=== PATIENT | female | born 1985 | race Caucasian/White ===

== ENCOUNTER 2018-05-27 20:23 | Inpatient (IN) | payer MEDICAID, OTHER ==
[~2018-05-27] VITALS: Ht 167.6 cm; Wt 74.2 kg
[2018-05-27 22:48] LABS: BASOPHILS % (AUTO) 0.4 % (0.0-2.0); EOSINOPHILS % (AUTO) 0.7 % (1.0-6.0); HEMATOCRIT 36.5 % (36-46); MEAN CORPUSCULAR HEMOGLOBIN 24.7 pg (26.0-34.0); MEAN CORPUSCULAR VOLUME 75 fL (80-100); MONOCYTES # (AUTO) 0.5 K/uL (0.1-1.0); MONOCYTES % (AUTO) 8.3 % (2.0-9.0); NEUTROPHILS # (AUTO) 3.5 K/uL (1.8-7.7); NEUTROPHILS % (AUTO) 57.6 % (40.0-70.0); PLATELET COUNT (AUTO) 198 K/uL (150-450); RED BLOOD CELL COUNT(AUTO) 4.87 MIL/uL (4.00-5.20); RED CELL DISTRIBUTION WIDTH 14.6 % (11.5-14.5)
[2018-05-27 23:02] LABS: ANION GAP 10 mmol/L (8-16); CALCIUM, TOTAL 8.9 mg/dL (8.8-10.5); CARBON DIOXIDE 26 mmol/L (22-29); CHLORIDE 104 mmol/L (98-107); CREATININE 0.75 mg/dL (0.60-1.30); GLOMERULAR FILTR. RATE CALC > 60 mL/min (>60); GLUCOSE,RANDOM 108 mg/dL (70-110); POTASSIUM 3.7 mmol/L (3.5-5.1); SODIUM SERUM 140 mmol/L (136-145); UREA NITROGEN, BLOOD 8 mg/dL (7-18)
[2018-05-27 23:06] LABS: ALANINE AMINOTRANSFERASE 18 U/L (12-78); ALBUMIN 3.7 g/dL (3.4-5.0); ALKALINE PHOSPHATASE 66 U/L (46-116); ASPARTATE AMINOTRANSFERASE 23 U/L (15-37); BILIRUBIN,TOTAL 0.5 mg/dL (0.1-1.0); TOTAL PROTEIN, SERUM 7.3 g/dL (6.4-8.2)
[2018-05-27 23:23] LABS: AMPHET/METH SCREEN,URINE NEGATIVE (NEGATIVE); BARBITURATE SCREEN, URINE NEGATIVE (NEGATIVE); BENZODIAZEPINES SCREEN,URINE NEGATIVE (NEGATIVE); CANNABINOID SCREEN,URINE NEGATIVE (NEGATIVE); COCAINE SCREEN,URINE NEGATIVE (NEGATIVE); METHADONE SCREEN, URINE NEGATIVE (NEGATIVE); OPIATE SCREEN,URINE NEGATIVE (NEGATIVE)
[2018-05-27 23:28] LABS: PHENCYCLIDINE SCREEN,URINE NEGATIVE (NEGATIVE)
[2018-05-27] MEDS ORDERED: LORazepam 2 MG/ML VIAL IM ONE (23:30)
[2018-05-28] MEDS ORDERED: HALOPERIDOL 5 MG TABLET PO PRN (01:00)
[2018-05-28] MEDS ORDERED: ZOLPIDEM TARTRATE 10 MG TABLET PO PRN (01:00)
[2018-05-28 01:57] LABS: APPEARANCE,URINE CLEAR (CLEAR); BILIRUBIN,URINE NEGATIVE (NEGATIVE); GLUCOSE, URINE (UA) NEGATIVE (NEGATIVE); KETONES,URINE TRACE mg/dL (NEGATIVE); LEUKOCYTE ESTERASE ,URINE TRACE (NEGATIVE); NITRATE,URINE NEGATIVE (NEGATIVE); OCCULT BLOOD,URINE NEGATIVE (NEGATIVE); PH,URINE 6.5 (5.0-8.0); PROTEIN,URINE NEGATIVE (NEGATIVE); UROBILINOGEN,URINE 0.2 mg/dL (<=1.0)
[2018-05-28 02:05] LABS: BACTERIA,URINE Rare /HPF (None Seen); RBC,URINE None Seen /HPF (0-2); SQUAMOUS EPITHELIAL CELL,UR Moderate /LPF (None Seen); WBC,URINE 0-2 /HPF (0-5)
[2018-05-28 08:52] VITALS: BP 108/60
[2018-05-28] MEDS ORDERED: ONDANSETRON HCL 4 MG TABLET PO PRN (10:15)
[2018-05-28] MEDS ORDERED: ACETAMINOPHEN 325 MG TABLET PO PRN (10:15)
[2018-05-28] MEDS ORDERED: GuaiFENesin/D-METHORPHAN [SUGAR-FREE] 200-20MG/10 ML SYRUP UDCUP PO PRN (10:15)
[2018-05-28] MEDS ORDERED: DOCUSATE SODIUM 100 MG CAPSULE PO PRN (10:15)
[2018-05-28] MEDS ORDERED: IBUPROFEN 400 MG TABLET PO PRN (10:15)
[2018-05-28] MEDS ORDERED: MAG HYDROX/AL HYDROX/SIMETH ES 30 ML SUSPENSION UDCUP PO PRN (10:15)
[2018-05-28] MEDS ORDERED: MAGNESIUM HYDROXIDE SUSPENSION 30 ML UDCUP PO PRN (10:15)
[2018-05-28] MEDS ORDERED: ALBUTEROL SULFATE HFA 90 MCG/PUFF 8 GM INHALER IH PRN (10:15)
[2018-05-28] MEDS ORDERED: CloNIDine HCL 0.1 MG TABLET PO PRN (10:15)
[2018-05-28] MEDS ORDERED: PETROLATUM,WHITE 71 GM JELLY TP PRN (10:15)
[2018-05-28] MEDS ORDERED: LOPERAMIDE HCL 2 MG CAPSULE PO PRN (10:15)
[2018-05-28] MEDS: LORazepam 2 MG TABLET PO PRN ×2 (11:18→22:50)
[2018-05-28 18:33] VITALS: BP 110/64
[2018-05-28 20:24] VITALS: BP 124/64
[2018-05-29 08:16] LABS: BASOPHILS % (AUTO) 0.3 % (0.0-2.0); EOSINOPHILS % (AUTO) 1.2 % (1.0-6.0); HEMOGLOBIN 13.3 g/dL (12.0-16.0); LYMPHOCYTES # (AUTO) 2.8 K/uL (1.0-4.8); LYMPHOCYTES % (AUTO) 37.9 % (22.0-44.0); MEAN CORPUSCULAR HEMOGLOBIN 24.7 pg (26.0-34.0); MEAN CORPUSCULAR HGB CONC 32.5 G/dL (31.0-37.0); MEAN CORPUSCULAR VOLUME 76 fL (80-100); MONOCYTES # (AUTO) 0.6 K/uL (0.1-1.0); MONOCYTES % (AUTO) 7.7 % (2.0-9.0); NEUTROPHILS # (AUTO) 3.9 K/uL (1.8-7.7); NEUTROPHILS % (AUTO) 52.9 % (40.0-70.0); PLATELET COUNT (AUTO) 257 K/uL (150-450); RED BLOOD CELL COUNT(AUTO) 5.39 MIL/uL (4.00-5.20); RED CELL DISTRIBUTION WIDTH 14.7 % (11.5-14.5)
[2018-05-29 08:41] LABS: ALANINE AMINOTRANSFERASE 19 U/L (12-78); ALBUMIN 3.9 g/dL (3.4-5.0); ALKALINE PHOSPHATASE 71 U/L (46-116); ANION GAP 8 mmol/L (8-16); ASPARTATE AMINOTRANSFERASE 28 U/L (15-37); BILIRUBIN,TOTAL 0.8 mg/dL (0.1-1.0); CALCIUM, TOTAL 8.7 mg/dL (8.8-10.5); CARBON DIOXIDE 27 mmol/L (22-29); CHLORIDE 102 mmol/L (98-107); CHOL/HDL RATIO 2.2 (3.9-5.7); CHOLESTEROL 189 mg/dL (131-200); CREATININE 0.85 mg/dL (0.60-1.30); GLOMERULAR FILTR. RATE CALC > 60 mL/min (>60); GLUCOSE,RANDOM 83 mg/dL (70-110); HDL CHOLESTEROL 87 mg/dL (40-60); LDL CHOL (CALC.) 89 mg/dL (0-130); POTASSIUM 3.6 mmol/L (3.5-5.1); SODIUM SERUM 137 mmol/L (136-145); THYROID STIMULATING HORMONE 3.16 uIU/mL (0.36-3.74); TOTAL PROTEIN, SERUM 7.7 g/dL (6.4-8.2); TRIGLYCERIDES 63 mg/dL (15-150); UREA NITROGEN, BLOOD 12 mg/dL (7-18)
[2018-05-29] MEDS: PARoxetine HCL 20 MG TABLET PO SCH ×2 (09:00→10:36)
[2018-05-29 10:24] VITALS: BP 108/61
[2018-05-29] MEDS: LORazepam 2 MG TABLET PO PRN (17:36)
[2018-05-29 19:37] VITALS: BP 125/78
[2018-05-29] MEDS ORDERED: PARO20TA24 PO (19:59)
== END 2018-05-29 20:45 | disposition home or self-care (01) | DRG 751 ==
LOC: EMS 20:25 → AHU 05-28 07:49 → 3EI 05-28 20:19
PROVIDERS: ADMIT Psychiatry & Neurology Psychiatry; ATTEND Psychiatry & Neurology Psychiatry
DX: F33.2 Major depressive disorder, recurrent severe without psychotic features (principal); R45.851 Suicidal ideations; F10.10 Alcohol abuse, uncomplicated; F41.9 Anxiety disorder, unspecified; G47.00 Insomnia, unspecified; G44.209 Tension-type headache, unspecified, not intractable; Z81.8 Family history of other mental and behavioral disorders; Z79.899 Other long term (current) drug therapy
CPT/HCPCS: 83036; 84443; 96372; G0480; J2060